=== PATIENT | male | born 1990 | race Caucasian/White ===

== ENCOUNTER 2024-01-26 15:44 | Emergency (ER) | payer BC ==
[~2024-01-26] VITALS: Ht 180.3 cm; Wt 81.6 kg
[2024-01-26 17:42] VITALS: BP 127/80; TEMP 97; O2SAT 99
== END 2024-01-26 17:40 | disposition home or self-care (01) ==
LOC: ER 16:45
DX: Z04.3 Encounter for examination and observation following other accident (principal); T75.4XXA Electrocution, initial encounter; W86.8XXA Exposure to other electric current, initial encounter; Y93.89 Activity, other specified; Y92.89 Other specified places as the place of occurrence of the external cause; Y99.8 Other external cause status
CPT/HCPCS: 36415; 84484; 93005; A4606; A4663